=== PATIENT | male | born 1935 | race Caucasian/White ===

== ENCOUNTER 2016-05-08 14:00 | Day surgery (SDC) | payer MEDICARE, OTHER ==
[~2016-05-08 14:00] MED LIST: AMBIEN10 MG PO; ASPIRIN81 MG PO; AVODART0.5 MG PO; CEROVITE ADVANC1 TAB PO; COREG3.125 MG PO; DULCOLAX10 MG RECTAL; ENDOCET 5-3251 EACH PO; FLOMAX0.4 MG PO; LASIX40 MG PO; LIPITOR80 MG PO; LOTRIMIN AF28.35 GM TOP; MELATONIN5 M2 PO; MILK OF MAGNESI30 ML PO; MIRALAX17 GM PO; NEURONTIN300 MG PO; NEURONTIN600 MG PO; NITROSTAT0.4 MG SL; NYSTATIN1 EAC1 TOP; PERCOCET 325-51 TAB PO; PRILOSEC20 MG PO; PRINIVIL10 MG PO; PROSCAR5 MG PO; REFRESH PLUS1 EACH EYEBOTH; SENNA-S TABLET1 EACH PO; SILVADENE 1%85 GM TOP; TAB-A-VITE1 EACH PO; TYLENOL325 MG PO; ULTRAM50 MG PO; VITAMIN D350000 UNIT PO; VOLTAREN100 GM TOP; XANAX0.5 MG PO; ZOLOFT100 MG PO; ZYRTEC10 MG PO
== END 2016-05-08 15:25 | disposition short-term general hospital (02) ==
LOC: SURGOP 14:00
PROC: 0TJB8ZZ Inspection of Bladder, Via Natural or Artificial Opening Endoscopic (ICD-10-PCS; principal; 2016-05-08)
DX: N40.1 Benign prostatic hyperplasia with lower urinary tract symptoms (principal); R33.9 Retention of urine, unspecified; R35.1 Nocturia; N32.89 Other specified disorders of bladder; I50.9 Heart failure, unspecified; I25.10 Atherosclerotic heart disease of native coronary artery without angina pectoris; E78.5 Hyperlipidemia, unspecified; I11.0 Hypertensive heart disease with heart failure; G47.00 Insomnia, unspecified; M19.90 Unspecified osteoarthritis, unspecified site; E55.9 Vitamin D deficiency, unspecified; Z88.6 Allergy status to analgesic agent; Z91.041 Radiographic dye allergy status; Z88.8 Allergy status to other drugs, medicaments and biological substances; Z79.891 Long term (current) use of opiate analgesic; Z79.899 Other long term (current) drug therapy; Z79.52 Long term (current) use of systemic steroids; I48.91 Unspecified atrial fibrillation; Z86.2 Personal history of diseases of the blood and blood-forming organs and certain disorders involving the immune mechanism; J44.9 Chronic obstructive pulmonary disease, unspecified; Z87.19 Personal history of other diseases of the digestive system; I87.2 Venous insufficiency (chronic) (peripheral); Z90.49 Acquired absence of other specified parts of digestive tract; Z98.41 Cataract extraction status, right eye; Z98.42 Cataract extraction status, left eye; Z90.89 Acquired absence of other organs; Z96.652 Presence of left artificial knee joint; Z96.641 Presence of right artificial hip joint; Z82.49 Family history of ischemic heart disease and other diseases of the circulatory system; Z87.891 Personal history of nicotine dependence

== ENCOUNTER → 2016-05-18 | Outpatient (CLI) | payer MEDICARE, OTHER | END | disposition short-term general hospital (02) | LOC: CLUROL 04-10 12:03 → CLCARD 05-11 15:33 | DX: I71.4 Abdominal aortic aneurysm, without rupture (principal); I25.10 Atherosclerotic heart disease of native coronary artery without angina pectoris; E78.5 Hyperlipidemia, unspecified; J44.9 Chronic obstructive pulmonary disease, unspecified; I10 Essential (primary) hypertension; I48.0 Paroxysmal atrial fibrillation ==

== ENCOUNTER → 2016-06-19 | Outpatient (CLI) | payer MEDICARE, OTHER | END | disposition short-term general hospital (02) | LOC: CLUROL 08:18 | DX: R33.9 Retention of urine, unspecified (principal) ==

== ENCOUNTER → 2016-07-27 | Outpatient (CLI) | payer MEDICARE, OTHER | END | disposition short-term general hospital (02) | LOC: CLCARD | DX: I25.10 Atherosclerotic heart disease of native coronary artery without angina pectoris (principal); I48.91 Unspecified atrial fibrillation; I71.4 Abdominal aortic aneurysm, without rupture; E78.5 Hyperlipidemia, unspecified; I77.9 Disorder of arteries and arterioles, unspecified; I10 Essential (primary) hypertension; J44.9 Chronic obstructive pulmonary disease, unspecified; R60.9 Edema, unspecified; I44.0 Atrioventricular block, first degree; I45.10 Unspecified right bundle-branch block; R94.31 Abnormal electrocardiogram [ECG] [EKG] ==